=== PATIENT | female | born 1985 | race African-American/Black ===

== ENCOUNTER 2017-06-07 10:30 | Emergency (ER) | payer OTHER ==
[2017-06-07 10:37] VITALS: BMI 32.3
--- NOTE | 2017-06-07 10:49 | PDOC ---
History of Present Illness - General History Source: Patient Exam Limitations: No Limitations - History of Present Illness Initial Comments: 06/07/17 12:54 The patient is a 32 year old female with a significant PMH of thrombocytopenia ( hx ITP in the past, baseline platelets ~80), gastric sleeve, and migraines who presents to the emergency department with generalized fatigue and generalized weakness with lightheadedness beginning approximately 1 week ago. The patient reports feeling generally tired despite receiving enough sleep and notes that she sometimes feels dizzy when getting up from sitting, She also endorses some nausea over the past week. The patient reports a 2 year history of thrombocytopenia and notes her thrombocyte levels usually fluctuate between 80, 000-100,000/L. The patient notes she is sexually active and there may be a chance of . The patient denies chest pain and shortness of breath. Denies fever, chills, abdominal pain, rectal bleeding/melena, diarrhea and constipation. Denies dysuria, frequency, urgency and hematuria. Denies any rashes/bruising, easy bleeding. LMP: Was set to begin 06/01, no onset yet. Allergies: NKA Past surgical history: Sleeve gastrectomy. Social history: Occasional alcohol use. No reported cigarette or drug use. PCP: Dr. Lauren Cameron <Acosta Yee - Last Filed: 06/07/17 12:53> <King Mcdowell - Last Filed: 06/07/17 14:54> - General Chief Complaint: Weakness Stated Complaint: WEAKNESS Time Seen by Provider: 06/07/17 10:44 Past History <Acosta Yee - Last Filed: 06/07/17 12:53> - Past Medical History Anemia: No (thrombocytopenia) COPD: No DVT: No Liver Disease: Yes (FATTY) - Surgical History Abdominal Surgery: Yes (gastric sleeve) - Suicide/Smoking/Psychosocial Hx Smoking History: Never smoked Have you smoked in the past 12 months: No Information on smoking cessation initiated: No Hx Alcohol Use: No Drug/Substance Use Hx: No Substance Use Type: None <King Mcdowell - Last Filed: 06/07/17 14:54> - Past Medical History Allergies/Adverse Reactions: Allergies Allergy/AdvReac Type Severity Reaction Status Date / Time No Known Allergies Allergy Verified 06/07/17 10:33 Home Medications: Ambulatory Orders Meclizine HCl [Antivert -] 25 mg PO QID #30 tablet 01/27/15 Review of Systems - Review of Systems Able to Perform ROS?: Yes Comments:: 06/07/17 12:54 All other systems reviewed and are negative except noted in HPI <Acosta Yee - Last Filed: 06/07/17 12:53> *Physical Exam - Vital Signs Last Vital Signs Temp Pulse Resp BP Pulse Ox 97.7 F 79 18 117/60 100 06/07/17 10:34 06/07/17 10:34 06/07/17 10:34 06/07/17 10:34 06/07/17 10:34 - Physical Exam Comments: 06/07/17 12:54 GENERAL: The patient is awake, alert, and fully oriented, Nontoxic - in no acute distress. HEAD: Normocephalic, atraumatic. EYES: extraocular movements intact, sclera anicteric, conjunctiva clear. ENT: Normal voice, Moist mucous membranes. NECK: Normal range of motion, supple LUNGS: Breath sounds equal, clear to auscultation bilaterally. No wheezes, no rhonchi, no rales. HEART: Regular rate and rhythm, without murmur, rub or gallop. ABDOMEN: Soft, nontender, normoactive bowel sounds. No guarding, no rebound.No CVA tenderness EXTREMITIES: Normal range of motion, no edema. No clubbing or cyanosis. No cords , erythema, or tenderness. NEUROLOGICAL: No facial asymmetry, Normal speech, PSYCH: Normal mood, normal affect. SKIN: Warm, Dry, normal turgor. <Acosta Yee - Last Filed: 06/07/17 12:53> - Vital Signs Last Vital Signs Temp Pulse Resp BP Pulse Ox 97.7 F 79 18 117/60 100 06/07/17 10:34 06/07/17 10:34 06/07/17 10:34 06/07/17 10:34 06/07/17 10:34 <King Mcdowell - Last Filed: 06/07/17 14:54> ED Treatment Course - LABORATORY CBC & Chemistry Diagram: 06/07/17 12:11 06/07/17 12:11 <Acosta Yee - Last Filed: 06/07/17 12:53> - LABORATORY CBC & Chemistry Diagram: 06/07/17 12:11 06/07/17 12:11 <King Mcdowell - Last Filed: 06/07/17 14:54> Medical Decision Making - Medical Decision Making 06/07/17 13:28 ddx in cludes anemia, metabolic dernagement pregancy pts labs reviewed noted for normal platelets, no anemia Uhcg will obtain beta hcg and pelvic US 06/07/17 14:49 pts beta noted aroun d8k pts US noted for IUP <6 weeks with yolk sac w/o pole wissible subchorionic heomrrhage. will dc with carbon paper coating supervisor fu return precautions were discussed I discussed the physical exam findings, ancillary test results and final diagnoses with the patient. I answered all of the patient's questions. The patient was satisfied with the care received and felt comfortable with the discharge plan and treatment plan. The patient will call their primary care physician within 24 hours to arrange follow-up and will return to the Emergency Department with any new, persistent or worsening symptoms. <King Mcdowell - Last Filed: 06/07/17 14:54> *DC/Admit/Observation/Transfer - Attestations Scribe Attestion: 06/07/17 12:18 Documentation prepared by Acosta Yee, acting as medical record clerk for King Mcdowell MD. <Acosta Yee - Last Filed: 06/07/17 12:53> - Discharge Dispostion Admit: No <King Mcdowell - Last Filed: 06/07/17 14:54> Diagnosis at time of Disposition: Qualifiers: Weeks of gestation: less than 8 weeks Qualified Code(s): Z3A.01 - Less than 8 weeks gestation of - Discharge Dispostion Disposition: HOME Condition at time of disposition: Stable - Referrals Referrals: Violeta Cameron MD [Primary Care Provider] - Hira Sherman MD [Staff Physician] - - Patient Instructions Printed Discharge Instructions: DI for -- Discomforts and Remedies Additional Instructions: Return to the emergency department immediately with ANY new, persistent or worsening symptoms. Start taking vitamins You MUST call and follow up with your obgyn within 1 week for further evaluation of your symptoms. Results were discussed with you. Please make sure your doctor reviews the results of your emergency evaluation. Print Language: SOUTH AFRICAN
[2017-06-07 12:19] LABS: BASO % 0.4 % (0-2.0); EOS % 1.1 % (0-4.5); HEMATOCRIT 40.2 % (32.4-45.2); HEMOGLOBIN 13.3 GM/dL (10.7-15.3); LYMPH % 26.1 % (8-40); MCH 27.9 pg (25.7-33.7); MEAN CELL VOLUME 84.7 fl (80-96); MEAN PLT VOLUME 8.8 fl (7.5-11.1); MONO % 4.5 % (3.8-10.2); NEUT % 67.9 % (42.8-82.8); PLATELET COUNT 161 K/MM3 (134-434); RBC 4.75 M/mm3 (3.60-5.2); RDW 13.5 % (11.6-15.6); WHITE BLOOD COUNT 7.1 K/mm3 (4.0-10.0)
[2017-06-07 12:20] LABS: HCG,QUALITATIVE URINE POSITIVE
[2017-06-07 12:22] LABS: URINE APPEARANCE CLEAR; URINE BILIRUBIN NEGATIVE (NEGATIVE); URINE BLOOD NEGATIVE (NEGATIVE); URINE COLOR YELLOW; URINE GLUCOSE (UA) NEGATIVE (NEGATIVE); URINE KETONE NEGATIVE (NEGATIVE); URINE LEUK ESTERASE NEGATIVE (NEGATIVE); URINE NITRITE NEGATIVE (NEGATIVE); URINE PROTEIN NEGATIVE (NEGATIVE)
[2017-06-07 12:46] LABS: ALBUMIN 4.4 g/dl (3.4-5.0); ANION GAP 7 (8-16); BILIRUBIN,TOTAL 0.4 mg/dL (0.2-1.0); BLOOD UREA NITROGEN 13 mg/dL (7-18); CALCIUM 8.8 mg/dL (8.5-10.1); CHLORIDE 108 mmol/L (98-107); CO2 25 mmol/L (21-32); GLUCOSE,RANDOM 70 mg/dL (74-106); SGOT/AST 7 U/L (15-37); SGPT/ALT 14 U/L (12-78); SODIUM 140 mmol/L (136-145); TOT PROT 8.1 g/dl (6.4-8.2)
[2017-06-07 12:47] LABS: ALK PHOS 75 U/L (45-117)
[2017-06-07 15:30] VITALS: BP 120/77; PULSE 67; TEMP 97.6
== END 2017-06-07 15:30 | disposition home or self-care (01) ==
LOC: JER 10:30
DX: O26.891 Other specified pregnancy related conditions, first trimester (principal); Z3A.01 Less than 8 weeks gestation of pregnancy; R53.1 Weakness; R53.83 Other fatigue; R42 Dizziness and giddiness; R11.0 Nausea; D69.6 Thrombocytopenia, unspecified; K76.0 Fatty (change of) liver, not elsewhere classified; Z98.84 Bariatric surgery status
CPT/HCPCS: 36415; 76801-TC; 80053; 81003; 84702; 84703; 85025; 99283-25

== ENCOUNTER 2018-04-17 04:06 | Emergency (ER) | payer OTHER ==
--- NOTE | 2018-04-17 04:27 | PDOC ---
History of Present Illness - General Chief Complaint: Pain, Acute Stated Complaint: ABD PAIN Time Seen by Provider: 04/17/18 04:26 History Source: Patient Exam Limitations: No Limitations - History of Present Illness Initial Comments: 04/17/18 04:29 RLQ pain that started slowly. Timing/Duration: 24 hours Severity: mild Past History - Past Medical History Allergies/Adverse Reactions: Allergies Allergy/AdvReac Type Severity Reaction Status Date / Time No Known Allergies Allergy Verified 04/17/18 20:27 Home Medications: Ambulatory Orders Naproxen [Naprosyn -] 500 mg PO BID PRN 7 Days #14 tablet 04/17/18 Anemia: No (thrombocytopenia) COPD: No DVT: No Liver Disease: Yes (FATTY) - Surgical History Abdominal Surgery: Yes (gastric sleeve) - Suicide/Smoking/Psychosocial Hx Smoking History: Never smoked Have you smoked in the past 12 months: No Information on smoking cessation initiated: No Hx Alcohol Use: No Drug/Substance Use Hx: No Substance Use Type: None Review of Systems - Review of Systems Constitutional: No: Symptoms Reported, See HPI, Chills, Diaphoresis, Fever, Loss of Appetite, Malaise, Night Sweats, Weakness, Weight Stable, Unintentional Wgt. Loss, Unexplained wgt Loss, Other HEENTM: No: Symptoms Reported, See HPI, Eye Pain, Blurred Vision, Tearing, Recent change in vision, Double Vision, Cataracts, Ear Pain, Ocular Prothesis, Ear Discharge, Nose Pain, Nose Congestion, Tinnitus, Nose Bleeding, Hearing Loss , Throat Pain, Throat Swelling, Mouth Pain, Dental Problems, Difficulty Swallowing, Mouth Swelling, Other Respiratory: No: Symptoms reported, See HPI, Cough, Orthopnea, Shortness of Breath, SOB with Exertion, SOB at Rest, Stridor, Wheezing, Productive cough, Hemoptysis, Other Cardiac (ROS): No: Symptoms Reported, See HPI, Chest Pain, Edema, Irregular Heart Rate, Lightheadedness, Palpitations, Syncope, Chest Tightness, Other ABD/GI: Yes: Abdominal cramping. No: Symptoms Reported, See HPI, Abdominal Distended, Abd. Pain w/ defecation, Blood Streaked Bowels, Constipated, Diarrhea , Difficulty Swallowing, Nausea, Poor Appetite, Poor Fluid Intake, Rectal Bleeding, Vomiting, Indigestion, Tarry Stools, Other : No: Symptoms Reported, See HPI, Burning, Dysuria, Discharge, Frequency, Flank Pain, Hematuria, Incontinence, Pain, Urgency, Testicular Mass, Testicular Swelling, Lesions, Testicular Pain, Other Musculoskeletal: No: Symptoms Reported, See HPI, Back Pain, Gout, Joint Pain, Joint Swelling, Muscle Pain, Muscle Weakness, Neck Pain, Joint Stiffness, Other Integumentary: No: Symptoms Reported, See HPI, Bruising, Change in Color, Change in Hair/Nails, Dryness, Erythema, Flushing, Lesions, Lumps, Pallor, Pruritus, Rash, Sweating, Other Neurological: No: Symptoms reported, See HPI, Headache, Numbness, Paresthesia, Pre-Existing Deficit, Seizure, Tingling, Tremors, Weakness, Unsteady Gait, Ataxia, Dizziness, Other *Physical Exam - Vital Signs Last Vital Signs Temp Pulse Resp BP Pulse Ox 98.8 F 68 18 142/73 99 04/17/18 04:12 04/17/18 04:12 04/17/18 04:12 04/17/18 04:12 04/17/18 04:12 - Physical Exam General Appearance: Yes: Nourished, Appropriately Dressed. No: Apparent Distress HEENT: positive: EOMI, [place], Normal ENT Inspection, Normal Voice, Symmetrical, TMs Normal Neck: positive: Normal Thyroid, Supple Respiratory/Chest: positive: Lungs Clear, Normal Breath Sounds. negative: Chest Tender, Respiratory Distress Cardiovascular: positive: Regular Rhythm, Regular Rate, S1, S2 Gastrointestinal/Abdominal: positive: Normal Bowel Sounds, Soft, Protuberent, Tenderness (lower abd tenderness, but no rebound and no guarding. We will check pelvic sono for ovarian cysts) Musculoskeletal: positive: Normal Inspection. negative: CVA Tenderness Extremity: positive: Normal Capillary Refill, Normal Inspection, Normal Range of Motion, Pelvis Stable Integumentary: positive: Normal Color, Dry, Warm Neurologic: positive: press hand supervisor II-XII NML intact, Fully Oriented, Alert, Normal Mood/ Affect Moderate Sedation - Procedure Monitoring Vital Signs: Procedure Monitoring Vital Signs Temperature 98.8 F 04/17/18 04:12 Pulse Rate 68 04/17/18 04:12 Respiratory Rate 18 04/17/18 04:12 Blood Pressure 142/73 04/17/18 04:12 O2 Sat by Pulse Oximetry (%) 99 04/17/18 04:12 ED Treatment Course - LABORATORY CBC & Chemistry Diagram: 04/17/18 04:53 04/17/18 04:53 Medical Decision Making - Medical Decision Making 04/17/18 04:29 Pt will have UA and HCG and she will have some basic labs. 04/18/18 05:50 Pt will be signed out to the day team. They will follow sono of the pelvis to r /o ovarian cysts. *DC/Admit/Observation/Transfer Diagnosis at time of Disposition: Right lower quadrant pain, Other ovarian cyst, right side - Discharge Dispostion Disposition: HOME Condition at time of disposition: Good - Prescriptions Prescriptions: Naproxen [Naprosyn -] 500 mg PO BID PRN 7 Days #14 tablet PRN Reason: Pain - Referrals Referrals: Kofi Nava MD [Staff Physician] - Violeta Cameron MD [Primary Care Provider] - - Patient Instructions Printed Discharge Instructions: DI for Ovarian Cyst Additional Instructions: You were seen today for lower right sided abdominal exam. The ultrasound and CT of your abdomen and pelvis showed three ovarian cysts with a small amount of fluid in your pelvis. This is likely the cause of your pain. Dr. Nava was contacted and informed of your pain. He will see you in his office on Thursday morning. I have sent a prescription for Naproxen to your pharmacy. Take as directed on the package insert. Do not exceed the recommended dosage. Do not take with other NSAID medications such as Ibuprofen, Advil, or Motrin. Go to the nearest emergency department if your condition worsens or you feel like you need additional emergency evaluation. Print Language: LITHUANIAN - Post Discharge Activity
[2018-04-17 04:35] VITALS: BMI 32.3
[2018-04-17] MEDS ORDERED: ACETAMINOPHEN 1000 MG/100 ML VIAL (NON FORMULARY) IVPB ONE ×2 (05:05→11:05)
[2018-04-17 05:11] LABS: BASO % 0.5 % (0-2.0); EOS % 1.2 % (0-4.5); HEMATOCRIT 38.1 % (32.4-45.2); HEMOGLOBIN 12.3 GM/dL (10.7-15.3); LYMPH % 19.4 % (8-40); MCHC 32.2 g/dl (32.0-36.0); MEAN CELL VOLUME 83.9 fl (80-96); MEAN PLT VOLUME 8.5 fl (7.5-11.1); MONO % 6.2 % (3.8-10.2); NEUT % 72.7 % (42.8-82.8); PLATELET COUNT 136 K/MM3 (134-434); RBC 4.54 M/mm3 (3.60-5.2); RDW 14.3 % (11.6-15.6); WHITE BLOOD COUNT 6.3 K/mm3 (4.0-10.0)
[2018-04-17] MEDS ORDERED: ACETAMINOPHEN INJECTION 100 ML IVPB ONE ×2 (05:19→11:07)
[2018-04-17 05:26] LABS: ALBUMIN 3.5 g/dl (3.4-5.0); ALK PHOS 81 U/L (45-117); ANION GAP 6 MMOL/L (8-16); BILIRUBIN,TOTAL 0.3 mg/dL (0.2-1); BLOOD UREA NITROGEN 10 mg/dL (7-18); CALCIUM 8.4 mg/dL (8.5-10.1); CHLORIDE 106 mmol/L (98-107); CO2 27 mmol/L (21-32); CREATININE 0.8 mg/dL (0.55-1.3); GLUCOSE,RANDOM 98 mg/dL (74-106); POTASSIUM 3.9 mmol/L (3.5-5.1); SGOT/AST 10 U/L (15-37); SGPT/ALT 18 U/L (13-61); SODIUM 140 mmol/L (136-145); TOT PROT 6.9 g/dl (6.4-8.2)
[2018-04-17 05:43] LABS: URINE APPEARANCE CLEAR; URINE BILIRUBIN NEGATIVE (<2.0 mg/dL); URINE COLOR LTYELLOW; URINE GLUCOSE (UA) NEGATIVE (NEGATIVE); URINE KETONE NEGATIVE (NEGATIVE); URINE LEUK ESTERASE NEGATIVE (NEGATIVE); URINE NITRITE NEGATIVE (NEGATIVE); URINE PROTEIN NEGATIVE (NEGATIVE); URINE UROBILINOGEN NEGATIVE mg/dL (0.2-1.0)
[2018-04-17 06:35] VITALS: TEMP 98.5
[2018-04-17] MEDS ORDERED: SODIUM CHLORIDE 0.9% 500 ML INFUS.BAG IV ONE (06:38)
--- NOTE | 2018-04-17 07:31 | PDOC ---
*Physical Exam - Vital Signs Last Vital Signs Temp Pulse Resp BP Pulse Ox 98.5 F 61 18 129/87 99 04/17/18 06:34 04/17/18 06:34 04/17/18 06:34 04/17/18 06:34 04/17/18 06:34 - Physical Exam General Appearance: No: Apparent Distress HEENT: positive: Normal Voice Gastrointestinal/Abdominal: positive: Tender (RLQ without rebound or guarding), Flat, Soft. negative: Organomegaly Neurologic: positive: Fully Oriented, Alert, Normal Mood/Affect ED Treatment Course - LABORATORY CBC & Chemistry Diagram: 04/17/18 04:53 04/17/18 04:53 - ADDITIONAL ORDERS Additional order review: Laboratory Results 04/17/18 04/17/18 04:53 04:25 Sodium 140 Potassium 3.9 Chloride 106 Carbon Dioxide 27 Anion Gap 6 L BUN 10 Creatinine 0.8 Creat Clearance w eGFR > 60 Random Glucose 98 Calcium 8.4 L Total Bilirubin 0.3 AST 10 L ALT 18 Alkaline Phosphatase 81 Total Protein 6.9 Albumin 3.5 Urine Color Ltyellow Urine Appearance Clear Urine pH 7.0 D Ur Specific [place] 1.018 Urine Protein Negative Urine Glucose (UA) Negative Urine Ketones Negative Urine Blood Negative Urine Nitrite Negative Urine Bilirubin Negative Urine Urobilinogen Negative Ur Leukocyte Esterase Negative 04/17/18 04:53 RBC 4.54 MCV 83.9 MCHC 32.2 RDW 14.3 MPV 8.5 Neutrophils % 72.7 Lymphocytes % 19.4 D Monocytes % 6.2 Eosinophils % 1.2 Basophils % 0.5 - Medications Given in the ED: ED Medications Discontinued Medications Generic Name Dose Route Start Last Admin Trade Name Mckenna PRN Reason Stop Dose Admin Acetaminophen 1,000 mg 04/17/18 05:05 04/17/18 05:27 Ofirmev Injection - IVPB 04/17/18 05:06 1,000 mg ONCE ONE Administration Sodium Chloride 1,000 ml 04/17/18 06:38 04/17/18 06:40 Normal Saline - IV 04/17/18 06:39 1,000 ml ONCE ONE Administration Medical Decision Making - Medical Decision Making 04/17/18 07:28 Received sign out from ED Attending. In short, pt is a 33 y/o female complaining of intermittent RLQ pain x 1 day. 3 months via c- section. UA unremarkable for pyuria, nitrites, leukocyte esterase. Low suspicion for cystitis or pyelonephritis. CBC and CMP unremarkable for derangement. Awaiting U/S. U/S revealed right ovarian cyst without evidence of torsion. 04/17/18 11:15 Pt reassessed. Reports pain has worsened and become constant after returning from CT scan. Will page OBGYN with concern for possible torsion given multiple cysts on R ovary and change in pain. 04/17/18 11:[address] Nava. Verbally appraised of the pts HPI, ED course, and current plan of management. Agrees story is concerning for possible torsion. Does not have privileges at this facility. Requested youth liaison officer [employer] consult. If pt is discharged, will evaluate pt in office on Thursday. Will call pt directly to schedule appointment. 04/17/18 11:56 Telephone page sent for Dr. Sherman OBGYN youth liaison officer. Left message on voicemail. Waiting call back. ED Attending discussed case with Dr. Sherman. Case discussed with ED attending, Dr. De La Garza. Pt reassessed. Found sleeping. Arousable to voice. Abdominal exam revealed LRQ tenderness without rebound or guarding. States it feels somewhat better, but feels comfortable going home and following up with private OBGYN, Dr. Nava. Will prescribe Naproxen for pain relief. Provided return precautions. *DC/Admit/Observation/Transfer Diagnosis at time of Disposition: Right lower quadrant pain, Other ovarian cyst, right side - Discharge Dispostion Disposition: HOME Condition at time of disposition: Good Decision to Admit order: No - Prescriptions Prescriptions: Naproxen [Naprosyn -] 500 mg PO BID PRN 7 Days #14 tablet PRN Reason: Pain - Referrals Referrals: Violeta Caemron MD [Primary Care Provider] - Kofi Nava MD [Staff Physician] - - Patient Instructions Printed Discharge Instructions: DI for Ovarian Cyst Additional Instructions: You were seen today for lower right sided abdominal exam. The ultrasound and CT of your abdomen and pelvis showed three ovarian cysts with a small amount of fluid in your pelvis. This is likely the cause of your pain. Dr. Nava was contacted and informed of your pain. He will see you in his office on Thursday. I have sent a prescription for Naproxen to your pharmacy. Take as directed on the package insert. Do not exceed the recommended dosage. Do not take with other NSAID medications such as Ibuprofen, Advil, or Motrin. Go to the nearest emergency department if your condition worsens or you feel like you need additional emergency evaluation. Print Language: MALTESE - Post Discharge Activity
[2018-04-17] MEDS ORDERED: KETOROLAC TROMETHAMINE 30 MG/1 ML VIAL IVPUSH ONE (11:18)
[2018-04-17] MEDS ORDERED: KETOROLAC TROMETHAMINE 30 MG/1 ML VIAL ONE (11:19)
[2018-04-17 14:00] VITALS: BP 119/57; PULSE 80
--- NOTE | 2018-04-17 14:51 | PDOC ---
*Physical Exam - Vital Signs Last Vital Signs Temp Pulse Resp BP Pulse Ox 98.5 F 61 18 129/87 99 04/17/18 06:34 04/17/18 06:34 04/17/18 06:34 04/17/18 06:34 04/17/18 06:34 ED Treatment Course - LABORATORY CBC & Chemistry Diagram: 04/17/18 04:53 04/17/18 04:53 - ADDITIONAL ORDERS Additional order review: Laboratory Results 04/17/18 04/17/18 04:53 04:25 Sodium 140 Potassium 3.9 Chloride 106 Carbon Dioxide 27 Anion Gap 6 L BUN 10 Creatinine 0.8 Creat Clearance w eGFR > 60 Random Glucose 98 Calcium 8.4 L Total Bilirubin 0.3 AST 10 L ALT 18 Alkaline Phosphatase 81 Total Protein 6.9 Albumin 3.5 Beta HCG, Quant < 1.0 Urine Color Ltyellow Urine Appearance Clear Urine pH 7.0 D Ur Specific [place] 1.018 Urine Protein Negative Urine Glucose (UA) Negative Urine Ketones Negative Urine Blood Negative Urine Nitrite Negative Urine Bilirubin Negative Urine Urobilinogen Negative Ur Leukocyte Esterase Negative 04/17/18 04:53 RBC 4.54 MCV 83.9 MCHC 32.2 RDW 14.3 MPV 8.5 Neutrophils % 72.7 Lymphocytes % 19.4 D Monocytes % 6.2 Eosinophils % 1.2 Basophils % 0.5 - RADIOLOGY Radiology Studies Ordered: Category Date Time Status ABDOMEN & PELVIS CT WITH CONTR [CT] Stat CT Scan 04/17/18 08:52 Completed - Medications Given in the ED: ED Medications Discontinued Medications Generic Name Dose Route Start Last Admin Trade Name Freq PRN Reason Stop Dose Admin Acetaminophen 1,000 mg 04/17/18 05:05 04/17/18 05:27 Ofirmev Injection - IVPB 04/17/18 05:06 1,000 mg ONCE ONE Administration Acetaminophen 1,000 mg 04/17/18 11:05 04/17/18 11:12 Ofirmev Injection - IVPB 04/17/18 11:06 1,000 mg ONCE ONE Administration Ketorolac Tromethamine 30 mg 04/17/18 11:18 04/17/18 11:26 Toradol Injection - IVPUSH 04/17/18 11:19 30 mg ONCE ONE Administration Sodium Chloride 1,000 ml 04/17/18 06:38 04/17/18 06:40 Normal Saline - IV 04/17/18 06:39 1,000 ml ONCE ONE Administration Medical Decision Making - Medical Decision Making 04/17/18 13:39 Sign-out received from outgoing Emergency Physician Dr. Gardner Pt interviewed and examined Ancillary studies reviewed Case discussed in detail with oncoming Emergency Physician including history, physical exam and ancillary studies. 33 year old female with RLQ pain. I had examined the patient and she had persistent moderate RLQ pain. Ultrasound showed no torsion, + right ovarian cyst ~ 2 cm, IUD that's somewhat low. CT scan ordered to r/o appy. No appendicitis, but with three ovarian cysts, largest at 4 cm. Pt was given tylenol and toradol with significant improvement. Case discussed with Dr. Nava and Dr. Sherman. Given that the ovarian cyst < 6 cm, and pt pain improved drastically, will treat as [place] or ovarian cyst pain. Will d/c with NSAIDS. Pt feels comfortable and will follow up with her taper machine. *DC/Admit/Observation/Transfer - Referrals Referrals: Violeta Cameron MD [Primary Care Provider] - - Patient Instructions - Post Discharge Activity
== END 2018-04-17 14:00 | disposition home or self-care (01) ==
LOC: JER 04:06
PROC: 3E033NZ Introduction of Analgesics, Hypnotics, Sedatives into Peripheral Vein, Percutaneous Approach (ICD-10-PCS; principal; 2018-04-17)
PROC: 3E033NZ Introduction of Analgesics, Hypnotics, Sedatives into Peripheral Vein, Percutaneous Approach (ICD-10-PCS; 2018-04-17)
PROC: 3E0333Z Introduction of Anti-inflammatory into Peripheral Vein, Percutaneous Approach (ICD-10-PCS; 2018-04-17)
DX: N83.201 Unspecified ovarian cyst, right side (principal)
CPT/HCPCS: 36415; 74177-TC; 76856-TC; 80053; 81003; 84702; 85025; 96374; 96375; 96376; 99284-25; J0131

== ENCOUNTER 2018-04-17 20:21 | Observation (INO) | payer OTHER ==
[2018-04-17] MEDS ORDERED: morphine CARPU-JECT 2 MG/1 ML DISP.SYRIN IVPUSH ONE ×2 (20:56→22:48)
[2018-04-17] MEDS ORDERED: MORPHINE SULFATE 2 MG/ML VIAL ONE ×2 (20:58→22:31)
--- NOTE | 2018-04-17 21:07 | PDOC ---
History of Present Illness - General History Source: Patient Exam Limitations: No Limitations - History of Present Illness Initial Comments: 04/17/18 21:09 The patient is a 33 year old female with no significant PMH presenting with worsening, persistent RLQ pain. Patient was discharged this morning on NSAIDS and SPEECH ASSISTANT follow up for similar symptoms. Patient had an ultrasound yesterday which did not show a torsion, right ovarian cyst, and a low IUD. Patient also had a CT yesterday which did not show appendicitis, but did show free fluid in the right adnexa, and three ovarian cysts the largest one being 4cm. Patient presents today with worsening RLQ pain. The patient denies chest pain, shortness of breath, headache and dizziness. Denies fever, chills, nausea, vomit, diarrhea and constipation. Denies dysuria, frequency, urgency and hematuria. Allergies: NKA Past surgical history: None reported. Social history: No reported alcohol, drug, or cigarette use. <Cammy Alvarez - Last Filed: 04/17/18 21:35> <Meghan Gardner - Last Filed: 04/18/18 01:12> - General Chief Complaint: Pain Stated Complaint: ABDOMINAL PAIN Time Seen by Provider: 04/17/18 20:56 Past History <Cammy Alvarez - Last Filed: 04/17/18 21:35> - Past Medical History Anemia: No (thrombocytopenia) COPD: No DVT: No Liver Disease: Yes (FATTY) - Surgical History Abdominal Surgery: Yes (gastric sleeve) - Suicide/Smoking/Psychosocial Hx Smoking History: Never smoked Have you smoked in the past 12 months: No Hx Alcohol Use: No Drug/Substance Use Hx: No Substance Use Type: None <Meghan Gardner - Last Filed: 04/18/18 01:12> - Past Medical History Allergies/Adverse Reactions: Allergies Allergy/AdvReac Type Severity Reaction Status Date / Time No Known Allergies Allergy Verified 04/17/18 20:27 Home Medications: Ambulatory Orders Naproxen [Naprosyn -] 500 mg PO BID PRN 7 Days #14 tablet 04/17/18 Review of Systems - Review of Systems Able to Perform ROS?: Yes Comments:: 04/17/18 21:35 ADULT ROS GENERAL/CONSTITUTIONAL: No fever or chills. No weakness. HEAD, EYES, EARS, NOSE AND THROAT: No change in vision. No ear pain or discharge. No sore throat. CARDIOVASCULAR: No chest pain or shortness of breath. RESPIRATORY: No cough, wheezing, or hemoptysis. GASTROINTESTINAL: No nausea, vomiting, diarrhea or constipation. (+) right lower quadrant pain. GENITOURINARY: No dysuria, frequency, or change in urination. MUSCULOSKELETAL: No joint or muscle swelling or pain. No neck or back pain. SKIN: No rash NEUROLOGIC: No headache, vertigo, loss of consciousness, or change in strength/ sensation. ENDOCRINE: No increased thirst. No abnormal weight change. HEMATOLOGIC/LYMPHATIC: No anemia, easy bleeding, or history of blood clots. ALLERGIC/IMMUNOLOGIC: No hives or skin allergy. <Cammy Alvarez - Last Filed: 04/17/18 21:35> *Physical Exam - Vital Signs Last Vital Signs Temp Pulse Resp BP Pulse Ox 97.7 F 65 18 158/86 100 04/17/18 20:23 04/17/18 20:23 04/17/18 20:23 04/17/18 20:23 04/17/18 20:23 - Physical Exam Comments: 04/17/18 21:36 ADULT EXAM GENERAL: Awake, alert, and fully oriented, (+) writhing in pain on the stretcher. HEAD: No signs of trauma EYES: PERRLA, EOMI, sclera anicteric, conjunctiva clear ENT: Auricles normal inspection, hearing grossly normal, nares patent, oropharynx clear without exudates. Moist mucosa NECK: Normal ROM, supple, no lymphadenopathy, JVD, or masses LUNGS: Breath sounds equal, clear to auscultation bilaterally. No wheezes, and no crackles HEART: Regular rate and rhythm, normal S1 and S2, no murmurs, rubs or gallops ABDOMEN: Soft, nontender, normoactive bowel sounds. No guarding, no rebound. No masses EXTREMITIES: Normal range of motion, no edema. No clubbing or cyanosis. No cords, erythema, or tenderness NEUROLOGICAL: Cranial nerves II through XII grossly intact. Normal speech, normal gait SKIN: Warm, Dry, normal turgor, no rashes or lesions noted. <Cammy Alvarez - Last Filed: 04/17/18 21:35> - Vital Signs Last Vital Signs Temp Pulse Resp BP Pulse Ox 97.7 F 65 18 158/86 100 04/17/18 20:23 04/17/18 20:23 04/17/18 20:23 04/17/18 20:23 04/17/18 20:23 <Meghan Gardner - Last Filed: 04/18/18 01:12> Moderate Sedation - Procedure Monitoring Vital Signs: Procedure Monitoring Vital Signs Temperature 97.7 F 04/17/18 20:23 Pulse Rate 65 04/17/18 20:23 Respiratory Rate 18 04/17/18 20:23 Blood Pressure 158/86 04/17/18 20:23 O2 Sat by Pulse Oximetry (%) 100 04/17/18 20:23 <Cammy Alvarez - Last Filed: 04/17/18 21:35> - Procedure Monitoring Vital Signs: Procedure Monitoring Vital Signs Temperature 97.7 F 04/17/18 20:23 Pulse Rate 65 04/17/18 20:23 Respiratory Rate 18 04/17/18 20:23 Blood Pressure 158/86 04/17/18 20:23 O2 Sat by Pulse Oximetry (%) 100 04/17/18 20:23 <Meghan Gardner - Last Filed: 04/18/18 01:12> ED Treatment Course - Medications Given in the ED: ED Medications Discontinued Medications Generic Name Dose Route Start Last Admin Trade Name Freq PRN Reason Stop Dose Admin Morphine Sulfate 2 mg 04/17/18 20:56 04/17/18 21:00 Morphine Injection - IVPUSH 04/17/18 20:57 2 mg ONCE ONE Administration <Cammy Alvarez - Last Filed: 04/17/18 21:35> - LABORATORY CBC & Chemistry Diagram: 04/17/18 21:50 04/17/18 21:50 - RADIOLOGY Radiology Studies Ordered: Category Date Time Status TRANSVAGINAL ULTRASOUND US [US] Stat Ultrasound 04/17/18 20:56 Ordered - Medications Given in the ED: ED Medications Discontinued Medications Generic Name Dose Route Start Last Admin Trade Name Freq PRN Reason Stop Dose Admin Morphine Sulfate 2 mg 04/17/18 20:56 04/17/18 21:00 Morphine Injection - IVPUSH 04/17/18 20:57 2 mg ONCE ONE Administration <Meghan Gardner - Last Filed: 04/18/18 01:12> Medical Decision Making - Medical Decision Making 04/17/18 22:54 WBC went from 6 to 10 and Neutophils went from 72 to 90% 04/17/18 22:55 Pt has free fluid in her pelvis and we are waiting still for her sono result to return. I took her immediately for sonogram on her arrival, after I placed the IV line and gave her 2mg morphine.. It has been 2.5 hrs. Fortunately pt has no drop in her Hb?HCT. 04/17/18 23:26 Patient Name: CHARAN DUPREE THIS IS A PRELIMINARY REPORT FROM [facility] DATE OF SERVICE: 2018-04-17 21:02:09 IMAGES: 37 EXAM: TRANSVAGINAL ULTRASOUND US HISTORY: 33-year-old female, evaluate for torsion. COMPARISON: None. Findings: Uterus measures 10.0 x 5.4 x 6.[address] Small amount of fluid noted within the endocervical canal. Small amount of fluid also noted posterior cul-de-sac in the pelvis. The right ovary measures 6.6 x 3.6 x 3.5 cm. 2 cystic areas noted in the right ovary measuring 2.7 x 2.5 x 3.0 cm, complex in the second cyst measuring 4.0 x 3.6 x 4.5 cm. Color flow and Doppler venous signal to the right ovary demonstrated. There is nonvisualization left ovary. Impression: 1. Cystic change to the right ovary. No findings to suggest right ovarian torsion. Interval surveillance recommended following 2-3 menstrual cycles. 2. Left ovary not visualized. 3. IUD in place. 04/17/18 23:30 Dr. Sherman is aware of the patient and he will some to see the patient in the AM. <Meghan Gardner - Last Filed: 04/18/18 01:12> *DC/Admit/Observation/Transfer - Attestations Scribe Attestion: 04/17/18 21:36 Documentation prepared by Cammy Alvarez, acting as biomedical electronics technician for Meghan Gardner MD. <Cammy Alvarez - Last Filed: 04/17/18 21:35> - Discharge Dispostion Decision to Admit order: Yes <Meghan Gardner - Last Filed: 04/18/18 01:12> Diagnosis at time of Disposition: Other ovarian cyst, right side, Right lower quadrant pain - Discharge Dispostion Condition at time of disposition: Guarded - Referrals Referrals: ON STAFF,NOT [Primary Care Provider] - - Patient Instructions - Post Discharge Activity
[2018-04-17] MEDS ORDERED: SODIUM CHLORIDE 0.9% 500 ML INFUS.BAG IV ONE (21:08)
[2018-04-17] MEDS ORDERED: ONDANSETRON 4 MG/2 ML VIAL IVPB ONE (21:09)
[2018-04-17] MEDS ORDERED: FAMOTIDINE 20 MG/50 ML IVPB 20 MG/50 ML MG IVPB ONE ×2 (21:09→22:05)
[2018-04-17 21:56] LABS: BASO % 0.3 % (0-2.0); HEMATOCRIT 37.8 % (32.4-45.2); LYMPH % 6.6 % (8-40); MCH 28.2 pg (25.7-33.7); MCHC 34.4 g/dl (32.0-36.0); MEAN CELL VOLUME 82.1 fl (80-96); MEAN PLT VOLUME 8.6 fl (7.5-11.1); MONO % 3.2 % (3.8-10.2); NEUT % 89.9 % (42.8-82.8); PLATELET COUNT 167 K/MM3 (134-434); RDW 14.2 % (11.6-15.6); WHITE BLOOD COUNT 10.3 K/mm3 (4.0-10.0)
[2018-04-17] MEDS ORDERED: ONDANSETRON 4 MG/2 ML VIAL ONE (22:05)
[2018-04-17 22:12] LABS: INR 1.18 (0.83-1.09)
[2018-04-17 22:26] LABS: ALK PHOS 80 U/L (45-117); ANION GAP 10 MMOL/L (8-16); BILIRUBIN,TOTAL 0.5 mg/dL (0.2-1); BLOOD UREA NITROGEN 8 mg/dL (7-18); CALCIUM 8.8 mg/dL (8.5-10.1); CHLORIDE 103 mmol/L (98-107); CO2 24 mmol/L (21-32); CREATININE 0.8 mg/dL (0.55-1.3); GLUCOSE,RANDOM 110 mg/dL (74-106); POTASSIUM 3.5 mmol/L (3.5-5.1); SGOT/AST 11 U/L (15-37); SGPT/ALT 21 U/L (13-61); SODIUM 137 mmol/L (136-145); TOT PROT 7.4 g/dl (6.4-8.2)
[2018-04-17] MEDS ORDERED: ACETAMINOPHEN 325 MG TABLET (FP) PO PRN (23:49)
[2018-04-17] MEDS: LACTATED RINGERS SOLUTION 1,000 ML IV SCH (23:50)
--- NOTE | 2018-04-18 00:01 | HP ---
CHIEF COMPLAINT: PCP: Dr. Cameron HISTORY OF PRESENT ILLNESS: Thank you Dr. Cameron for the opportunity to care for your patient. Briefly, this is a 33 y/o female presenting for the second time in 2 days for lower abdominal pain. Nothing makes it better or worse, hasn't had any recent procedures, no recent abx or medication changes. Seen in ER yday and had US and CT done that r/o any cornelius intraabdominal pathology but did show 3x R- ovarian cysts and recommended 6-8 week FU. Showed malposition of the IUD and a lobulated spleen that should be followed up as OP. She comes back today for worsening of the aforementioned sx. Shock Absorber Installer called in ER and recommended admission to medicine and will see her in the AM (Dr. Sherman). Will place on observation Recent Travel: None PAST MEDICAL HISTORY: No chronic conditions for which she takes Rx medication; ovarian cysts dx yday PAST SURGICAL HISTORY: No recent refining engineer procedures; h/o gastric bypass Social History: Denies abusing alcohol tobacco or drugs Family History: Allergies No Known Allergies Allergy (Verified 04/17/18 20:27) HOME MEDICATIONS: Home Medications Medication Instructions Recorded Naproxen [Naprosyn -] 500 mg PO BID PRN 7 Days #14 tablet 04/17/18 REVIEW OF SYSTEMS 10 sys ROS done and negative aside from HPI PHYSICAL EXAMINATION Vital Signs - 24 hr 04/17/18 20:23 Temperature 97.7 F Pulse Rate 65 Respiratory 18 Rate Blood Pressure 158/86 O2 Sat by Pulse 100 Oximetry (%) GENERAL: Awake, alert, and fully oriented, in no acute distress. HEAD: Normal with no signs of trauma. EYES: Pupils equal, round and reactive to light, extraocular movements intact EARS, NOSE, THROAT: Ears normal, nares patent, oropharynx clear without exudates. Moist mucous membranes. NECK: Normal range of motion, supple without lymphadenopathy, JVD, or masses. LUNGS: Breath sounds equal, clear to auscultation bilaterally HEART: Regular rate and rhythm, normal S1 and S2 without murmur, rub or gallop. ABDOMEN: Soft, tender throughout without rebound, nondistended MUSCULOSKELETAL: Normal range of motion at all joints. No bony deformities or tenderness. No CVA tenderness. PSYCHIATRIC: Cooperative. Good eye contact. Appropriate mood and affect. SKIN: Warm, dry, normal turgor, no rashes or lesions noted, normal capillary refill. Laboratory Results - last 24 hr 04/17/18 04/17/18 04/17/18 21:50 21:50 21:50 WBC 10.3 H RBC 4.60 Hgb 13.0 Hct 37.8 MCV 82.1 MCH 28.2 MCHC 34.4 RDW 14.2 Plt Count 167 D MPV 8.6 Absolute Neuts (auto) 9.2 H Neutrophils % 89.9 H D Lymphocytes % 6.6 L D Monocytes % 3.2 L Eosinophils % 0.0 D Basophils % 0.3 Nucleated RBC % 0 PT with INR 14.00 H INR 1.18 H Sodium 137 Potassium 3.5 Chloride 103 Carbon Dioxide 24 Anion Gap 10 BUN 8 Creatinine 0.8 Creat Clearance w eGFR > 60 Random Glucose 110 H Calcium 8.8 Total Bilirubin 0.5 AST 11 L ALT 21 Alkaline Phosphatase 80 Total Protein 7.4 Albumin 4.0 US shows on prelim report cystic R-ovary and recommended repeat US in 2-3 cycles ; comments IUD in place Prior imaging studies reviewed and described in HPI ASSESSMENT/PLAN: Patient presents with lower abdominal pain and is found to have ovarian cysts with possible malposition of IUD 1) Ovarian Cysts -Defer management to OBGYN -NPO if procedure, pain control, IVF overnight. No need for abx; afebrile and white count is likely reactive -Further imaging and testing per DONOR SERVICES SPECIALIST 2) Possible malposition IUD -Seen on CT but US says in place -Defer management to refining engineer 3) Lobulated Spleen -Likely normal variant but could be minimal splenomeg; followup OP 4) S/P Gastric Bypass -OP nutritional FU, etc. No acute issues FENA -LR@75 -PRN replete -NPO -As tolerated Full Code
[2018-04-18] MEDS ORDERED: KETOROLAC TROMETHAMINE 15 MG/ML VIAL ONE (01:12)
[2018-04-18] MEDS ORDERED: ACETAMINOPHEN 325 MG TABLET (FP) ONE (01:12)
[2018-04-18] MEDS ORDERED: traMADol HCL 50 MG TABLET ONE (01:12)
[2018-04-18] MEDS: KETOROLAC TROMETHAMINE 15 MG/ML VIAL IVPUSH PRN ×3 (01:31→16:48)
[2018-04-18] MEDS: traMADol HCL 50 MG TABLET PO PRN ×2 (01:33→14:03)
[2018-04-18 07:36] VITALS: BMI 35.6
[2018-04-18] MEDS: LACTATED RINGERS SOLUTION 1,000 ML IV SCH (08:26)
--- NOTE | 2018-04-18 08:40 | EKG ---
Test Reason : Blood Pressure : / mmHG Vent. Rate : 056 BPM Atrial Rate : 056 BPM P-R Int : 154 ms QRS Dur : 094 ms QT Int : 474 ms P-R-T Axes : 063 009 017 degrees QTc Int : 457 ms SINUS BRADYCARDIA WITH SINUS ARRHYTHMIA MODERATE VOLTAGE CRITERIA FOR LVH, MAY BE NORMAL VARIANT BORDERLINE ECG NO PREVIOUS ECGS AVAILABLE Confirmed by MARNI MATHEWS MD ([id number]) on 04/18/2018 8:40:07 AM Referred By: Confirmed By:MARNI MATHEWS MD
[2018-04-18 08:58] LABS: HEMATOCRIT 40.7 % (32.4-45.2); HEMOGLOBIN 12.9 GM/dL (10.7-15.3); MCH 26.6 pg (25.7-33.7); MCHC 31.8 g/dl (32.0-36.0); MEAN CELL VOLUME 83.7 fl (80-96); MEAN PLT VOLUME 8.6 fl (7.5-11.1); PLATELET COUNT 160 K/MM3 (134-434); RBC 4.86 M/mm3 (3.60-5.2); RDW 14.1 % (11.6-15.6); WHITE BLOOD COUNT 9.4 K/mm3 (4.0-10.0)
[2018-04-18 09:27] LABS: ALBUMIN 3.6 g/dl (3.4-5.0); ALK PHOS 75 U/L (45-117); ANION GAP 6 MMOL/L (8-16); BILIRUBIN,TOTAL 0.6 mg/dL (0.2-1); BLOOD UREA NITROGEN 7 mg/dL (7-18); CHLORIDE 104 mmol/L (98-107); CO2 27 mmol/L (21-32); CREATININE 0.7 mg/dL (0.55-1.3); GLUCOSE,RANDOM 85 mg/dL (74-106); MAGNESIUM 2.1 mg/dL (1.8-2.4); POTASSIUM 3.6 mmol/L (3.5-5.1); SGOT/AST 7 U/L (15-37); SGPT/ALT 20 U/L (13-61); SODIUM 138 mmol/L (136-145); TOT PROT 7.1 g/dl (6.4-8.2)
--- NOTE | 2018-04-18 10:18 | CON.OBG ---
Consult Consult Specialty:: obgyn Reason for Consultation:: ovarian cysts - History of Present Illness Chief Complaint: pelvic pain History of Present Illness: Visited pt this am, sleeping. Pt awoke and gave story of pelvic pain and has an IUD. She has irregular cycles and was once on ocp for regulation. Explained the results of her exam, no torsion, small cysts up to 4cm and iud. Explained that pt may consider starting ocp for cycle control. Will discuss with her pmd. Pt may be discharged today to follow up with obgyn. - History Source History Provided By: Patient - Past Medical History TOP CARRIER: No: Alzheimer's, CVA, Dementia, Migraine, Multiple Sclerosis, Peripheral Neuropathy, Parkinson's, Seizure, Syncope, TIA, Vertigo, Other Cardio/Vascular: No: AFIB, Aneurysm, Aortic Insufficiency, Aortic Stenosis, CAD , CHF, Deep Vein Thrombosis, HTN, Hyperlipdemia, [place], Mitral Insufficiency, Mitral Stenosis, Murmur, Pulmonary Hypertension, Other Pulmonary: No: Asthma, Bronchitis, Cancer, COPD, O2 Dependent, Pneumonia, Previously Intubated, Pulmonary Embolus, Pulmonary Fibrosis, Sleep Apnea, Other Gastrointestinal: No: Ascites, Cancer, Constipation, Crohn's Disease, Diverticulitis, Diverticulosis, Esophageal Varices, Gastritis, GERD, GI Bleed, Hemorrhoids, Hiatal Hernia, Inflamatory Bowel Disease, Irritable Bowel Disease, Pancreatitis, Peptic Ulcer Disease, Ulcerative Colitis, Other Hepatobiliary: No: Cirrhosis, Cholelithiasis, Cholecystitis, Choledocholithiasis , Hepatitis A, Hepatitis B, Hepatitis C, Other Renal/: No: Renal Failure, Renal Inusuff, BPH, Cancer, Hematuria, Hemodialysis , Neurogenic Bladder, Renal Calculi, UTI, Other Reproductive: No: Ectopic , Endometriosis, Fibroids, PID, Polycystic Ovary Syndrome, Postmenopausal, Other - Alcohol/Substance Use Hx Alcohol Use: No - Smoking History Smoking history: Never smoked Have you smoked in the past 12 months: No Home Medications - Allergies Allergies/Adverse Reactions: Allergies Allergy/AdvReac Type Severity Reaction Status Date / Time No Known Allergies Allergy Verified 04/17/18 20:27 - Home Medications Home Medications: Ambulatory Orders Naproxen [Naprosyn -] 500 mg PO BID PRN 7 Days #14 tablet 04/17/18 Physical Exam-DIRECTOR SELECTION AND ADMINISTRATION Vital Signs: Vital Signs Temperature 97.8 F 04/18/18 06:58 Pulse Rate 49 L 04/18/18 06:58 Respiratory Rate 20 04/18/18 06:58 Blood Pressure 142/65 04/18/18 06:58 O2 Sat by Pulse Oximetry (%) 98 04/18/18 06:58 Labs: CBC, BMP 04/18/18 08:38 04/18/18 08:38 Assessment/Plan sonograms show ovarian cysts no torsion maybe discharged today to folow up with obgyn
[2018-04-18 10:24] LABS: URINE APPEARANCE CLEAR; URINE BILIRUBIN NEGATIVE (<2.0 mg/dL); URINE COLOR STRAW; URINE GLUCOSE (UA) NEGATIVE (NEGATIVE); URINE KETONE NEGATIVE (NEGATIVE); URINE LEUK ESTERASE 1+ (NEGATIVE); URINE NITRITE NEGATIVE (NEGATIVE); URINE PROTEIN NEGATIVE (NEGATIVE); URINE UROBILINOGEN NEGATIVE mg/dL (0.2-1.0)
[2018-04-18 10:37] LABS: EPI CELLS RARE /HPF (FEW); URINE MUCUS RARE
--- NOTE | 2018-04-18 13:35 | DS ---
Physical Examination Vital Signs: Vital Signs Temperature 98.3 F 04/18/18 11:00 Pulse Rate 63 04/18/18 11:00 Respiratory Rate 20 04/18/18 11:00 Blood Pressure 142/77 04/18/18 11:00 O2 Sat by Pulse Oximetry (%) 98 04/18/18 11:00 Findings/Remarks: pt seen/ examined chart reviewed awake/ comfortable emergency worker consult noted Constitutional: Yes: No Distress Eyes: Yes: Conjunctiva Clear Neck: Yes: Supple Cardiovascular: Yes: Regular Rate and Rhythm Respiratory: Yes: CTA Bilaterally Gastrointestinal: Yes: Soft Neurological: Yes: Alert Labs: CBC, BMP 04/18/18 08:38 04/18/18 08:38 Discharge Summary Reason For Visit: RT LOWER QUADRANT ABDOMINAL PAIN;OTHER CYST RT Current Active Problems Other ovarian cyst, right side (Acute) Right lower quadrant pain (Acute) Hospital Course: In summary 33 y/o female presenting for the second time in 2 days for lower abdominal pain. work up -ve except ovarian cyst seen by emergency worker advised to consider ocp pt to follow with her emergency worker in office medically stable for d/c discussed with nursing staff also pt in agreement Condition: Stable - Instructions Referrals: ON STAFF,NOT [Primary Care Provider] - Violeta Cameron MD [Staff Physician] - Disposition: HOME - Home Medications Comprehensive Discharge Medication List: Ambulatory Orders Naproxen [Naprosyn -] 500 mg PO BID PRN 7 Days #14 tablet 04/17/18
[2018-04-18 15:29] VITALS: BP 138/70; PULSE 61; TEMP 98
== END 2018-04-18 17:35 | disposition home or self-care (01) ==
LOC: JER 20:21 → JERBED 04-18 01:12 → J8W 04-18 06:14
PROVIDERS: ADMIT Internal Medicine; ATTEND Internal Medicine
PROC: 3E0333Z Introduction of Anti-inflammatory into Peripheral Vein, Percutaneous Approach (ICD-10-PCS; principal; 2018-04-18)
PROC: 3E033NZ Introduction of Analgesics, Hypnotics, Sedatives into Peripheral Vein, Percutaneous Approach (ICD-10-PCS; 2018-04-18)
PROC: 3E033GC Introduction of Other Therapeutic Substance into Peripheral Vein, Percutaneous Approach (ICD-10-PCS; 2018-04-18)
PROC: 3E0337Z Introduction of Electrolytic and Water Balance Substance into Peripheral Vein, Percutaneous Approach (ICD-10-PCS; 2018-04-18)
DX: N83.201 Unspecified ovarian cyst, right side (principal); R10.31 Right lower quadrant pain; Z98.84 Bariatric surgery status
CPT/HCPCS: 36415; 76830-TC; 80053; 81003; 81015; 83735; 85025; 85027; 85610; 86850; 86900; 86901; 93005; 93010; 96374; 96375; 96376; 99284-25; G0378

== ENCOUNTER 2019-05-24 11:46 | Emergency (ER) | payer OTHER ==
[2019-05-24 12:16] VITALS: BMI 34.7
[2019-05-24] MEDS ORDERED: SODIUM CHLORIDE 1,000 ML IV STA (12:44)
[2019-05-24] MEDS ORDERED: KETOROLAC TROMETHAMINE 30 MG/1 ML VIAL IVPUSH ONE (12:44)
[2019-05-24] MEDS ORDERED: ONDANSETRON 4 MG/2 ML VIAL IVPUSH ONE (12:45)
--- NOTE | 2019-05-24 12:56 | PDOC ---
History of Present Illness - General History Source: Patient Exam Limitations: No Limitations - History of Present Illness Initial Comments: 05/24/19 12:52 Pt is a 34 y/o female who presents to the ED with complaint of lower abdominal pain and bad pain since 2 days ago. She states she currently has her menses and has a history of ovarian cysts that she gets commonly during her menstrual cycle and the pain feels similar. She denies any fevers or chills. She denies any dysuria, frequency or urgency. She has been taking ibuprofen 800mg which has been helping. She last took the ibuprofen last night. She states she has been having some dizziness as well. She denies any past medical history of allergies to medications. <Ngozi Pearl - Last Filed: 05/24/19 15:24> <Sima Montanez - Last Filed: 05/27/19 12:50> - General Chief Complaint: Pain Stated Complaint: PELVIC PAIN Time Seen by Provider: 05/24/19 12:23 Past History - Past Medical History Anemia: No (thrombocytopenia) COPD: No DVT: No Liver Disease: Yes (FATTY) - Surgical History Abdominal Surgery: Yes (gastric sleeve) - Reproductive History Is Patient Now?: No - Psycho Social/Smoking Cessation Hx Smoking History: Never smoked Have you smoked in the past 12 months: No Hx Alcohol Use: No Drug/Substance Use Hx: No Substance Use Type: None <Ngozi Pearl - Last Filed: 05/24/19 15:24> <Sima Montanez - Last Filed: 05/27/19 12:50> - Past Medical History Allergies/Adverse Reactions: Allergies Allergy/AdvReac Type Severity Reaction Status Date / Time No Known Allergies Allergy Verified 05/24/19 12:11 Home Medications: Ambulatory Orders Cephalexin [Keflex] 500 mg PO Q6H 7 Days #28 capsule 05/24/19 Review of Systems - Review of Systems Comments:: 05/24/19 12:53 - Review of Systems Able to Perform ROS?: Yes Constitutional: No: Fever, Chills, Loss of Appetite, Night Sweats, Weakness HEENTM: No: Eye Pain, Vision changes, Ear Pain, Throat Pain, Throat Swelling, Mouth Pain, Difficulty Swallowing Respiratory: No: Cough, Shortness of Breath, Wheezing, Sputum Production Cardiac (ROS): No: Chest Pain, Chest Tightness, Palpitations, Irregular Heart Beat, Edema ABD/GI: No: Nausea, Vomiting, Diarrhea; Positive: Lower Abdominal Pain : No Dysuria, No Hematuria, No Frequency, No Urgency, No Vaginal Discharge/ Pain Musculoskeletal: No: Muscle Pain, Joint Pain, Muscle Weakness, Neck Pain, Positive: Back Pain Integumentary: No: Lesions, Rash Neurological: No: Headache, Numbness, Tingling, Weakness, Speech Difficulties <Dae,Ngozi D - Last Filed: 05/24/19 15:24> *Physical Exam - Vital Signs Last Vital Signs Temp Pulse Resp BP Pulse Ox 98.6 F 99 H 18 104/61 100 05/24/19 12:11 05/24/19 12:11 05/24/19 12:11 05/24/19 12:11 05/24/19 12:11 - Physical Exam 05/24/19 12:54 - Physical Exam General Appearance: Nourished, Appropriately Dressed, No Distress HEENT: EOMI, Normal Voice, No Pharyngeal Erythema, No Muffled/Hoarse voice, No Tonsillar Exudate, No Tonsillar Erythema, No Nasal Congestion, No Rhinorrhea, Hearing Grossly Normal, TMs Normal, No TM Bulging, No TM Dullness, No TM Erythema Neck: Supple, No Lymphadenopathy (R), No Lymphadenopathy (L), No Rigidity, No Decreased range of motion Respiratory/Chest: Lungs Clear, Normal Breath Sounds. No Respiratory Distress, No Accessory Muscle Use Cardiovascular: Regular Rhythm, Regular Rate, S1, S2 Gastrointestinal/Abdominal: Normal Bowel Sounds, Soft. Non-tender, No Guarding , No Rebound, No Rigidity; No reproducible abdominal tenderness to palpation. No CVA tenderness bilaterally. Musculoskeletal: Normal Inspection. No Decreased Range of Motion Extremity: Normal Capillary Refill, Normal Inspection Integumentary: Normal Color, Dry. No Rash Neurologic: crusher operator II-XII NML intact, Fully Oriented, Alert, Normal Mood/Affect, Normal Response <Dae,Ngozi D - Last Filed: 05/24/19 15:24> - Vital Signs Last Vital Signs Temp Pulse Resp BP Pulse Ox 98.1 F 84 18 105/62 98 05/24/19 15:41 05/24/19 15:41 05/24/19 15:41 05/24/19 15:41 05/24/19 15:41 <Sima Montanez - Last Filed: 05/27/19 12:50> ED Treatment Course - LABORATORY CBC & Chemistry Diagram: 05/24/19 13:00 05/24/19 13:00 - ADDITIONAL ORDERS Additional order review: 05/24/19 15:24 Laboratory Tests 05/24/19 05/24/19 13:00 13:00 Urine Color Yellow Urine Appearance Cloudy Urine pH 5.5 Ur Specific [place] 1.016 Urine Protein 1+ H Urine Glucose (UA) Negative Urine Ketones Trace H Urine Blood 3+ H Urine Nitrite Positive H Urine Bilirubin Negative Urine Urobilinogen 0.2 Ur Leukocyte Esterase 2+ H Urine WBC (Auto) 44 Urine RBC (Auto) 25 Urine Casts (Auto) 5 U Epithel Cells (Auto) 1.5 Urine Bacteria (Auto) 5851.7 Urine HCG, Qual Negative - RADIOLOGY Radiology Studies Ordered: Category Date Time Status TRANSVAGINAL ULTRASOUND US [US] Stat Ultrasound 05/24/19 12:45 Ordered <Ngozi Pearl - Last Filed: 05/24/19 15:24> - LABORATORY CBC & Chemistry Diagram: 05/24/19 13:00 05/24/19 13:00 - ADDITIONAL ORDERS Additional order review: 05/24/19 13:00 Urine Culture - Final Urine - Urine Clean Catch Escherichia Coli 05/24/19 13:00 RBC 4.39 MCV 78.9 L MCHC 32.8 RDW 14.9 MPV 8.3 Neutrophils % 69.4 D Lymphocytes % 13.9 D Monocytes % 15.9 H D Eosinophils % 0.6 D Basophils % 0.2 - Medications Given in the ED: ED Medications Discontinued Medications Generic Name Dose Route Start Last Admin Trade Name Freq PRN Reason Stop Dose Admin Cephalexin HCl 500 mg 05/24/19 15:20 05/24/19 15:43 Keflex - PO 05/24/19 15:21 500 mg ONCE ONE Administration Sodium Chloride 1,000 mls @ 1,000 mls/hr 05/24/19 12:44 05/24/19 13:15 Normal Saline - IV 05/24/19 13:43 1,000 mls/hr ASDIR STA Administration Ketorolac Tromethamine 15 mg 05/24/19 12:44 05/24/19 14:04 Toradol Injection - IVPUSH 05/24/19 12:45 15 mg ONCE ONE Administration Ondansetron HCl 4 mg 05/24/19 12:45 05/24/19 13:16 Zofran Injection IVPUSH 05/24/19 12:46 4 mg ONCE ONE Administration <Sima Montanez - Last Filed: 05/27/19 12:50> Medical Decision Making - Medical Decision Making 05/24/19 12:55 Assessment: Patient is a 34-year-old female with lower abdominal pain and back pain for the last 2 days. Plan: -Saline lock and labs ordered -Toradol ordered -Transvaginal ultrasound ordered -Will reassess 05/24/19 15:24 The patient has been made aware that she has a urinary tract infection that may be a sending and that is why she has back pain. We will treat her with Keflex and her first dose will be given to her in the ED. She does have a primary care doctor and she has been encouraged to follow-up with the primary care doctor within 1 to 2 days for repeat evaluation. We will follow-up on the urine culture to ensure that it is sensitive to Keflex. The patient understands and agrees with this treatment and plan and the patient is stable for discharge. <Ngozi Pearl - Last Filed: 05/24/19 15:24> - Medical Decision Making I reviewed the case with the mid-level practitioner and agree with the mid- level practitioner's assessment, diagnosis and disposition. <Sima Montanez - Last Filed: 05/27/19 12:50> Discharge - Discharge Information Problems reviewed: Yes <Ngozi Pearl - Last Filed: 05/24/19 15:24> <Sima Montanez - Last Filed: 05/27/19 12:50> - Discharge Information Clinical Impression/Diagnosis: Urinary tract infection Qualifiers: Urinary tract infection type: acute cystitis Hematuria presence: without hematuria Qualified Code(s): N30.00 - Acute cystitis without hematuria Condition: Stable Disposition: HOME - Additional Discharge Information Prescriptions: Cephalexin [Keflex] 500 mg PO Q6H 7 Days #28 capsule - Follow up/Referral Referrals: Violeta Cameron MD [Primary Care Provider] - 2 Days - Patient Discharge Instructions Patient Printed Discharge Instructions: DI for Urinary Tract Infection (UTI) Additional Instructions: Get plenty of rest and be sure to increase your fluid intake. Take the antibiotics as prescribed and complete the entire course even if you are feeling better. Be sure to see your primary doctor within 2 to 3 days for repeat evaluation. Return to the emergency department immediately for high fevers, shaking chills, profuse vomiting or any other worsening symptoms. - Post Discharge Activity Work/Back to School Note: Back to Work
[2019-05-24] MEDS ORDERED: ONDANSETRON 4 MG/2 ML VIAL ONE (13:06)
[2019-05-24] MEDS ORDERED: KETOROLAC TROMETHAMINE 15 MG/ML VIAL ONE ×2 (13:06→13:41)
[2019-05-24 13:30] LABS: BASO % 0.2 % (0-2.0); EOS % 0.6 % (0-4.5); HEMATOCRIT 34.6 % (32.4-45.2); HEMOGLOBIN 11.4 GM/dL (10.7-15.3); LYMPH % 13.9 % (8-40); MCH 25.9 pg (25.7-33.7); MCHC 32.8 g/dl (32.0-36.0); MEAN CELL VOLUME 78.9 fl (80-96); MEAN PLT VOLUME 8.3 fl (7.5-11.1); MONO % 15.9 % (3.8-10.2); NEUT % 69.4 % (42.8-82.8); PLATELET COUNT 157 K/MM3 (134-434); RBC 4.39 M/mm3 (3.60-5.2); RDW 14.9 % (11.6-15.6); WHITE BLOOD COUNT 7.4 K/mm3 (4.0-10.0)
[2019-05-24 13:34] LABS: EPI CELLS 1.5 /HPF (0-5/HPF); HYALINE CASTS 5 /lpf (0-8); PH,URINE 5.5 (5.0-8.0); URINE APPEARANCE CLOUDY; URINE BACTERIA 5851.7 /hpf (NEGATIVE); URINE BILIRUBIN NEGATIVE (NEGATIVE); URINE COLOR YELLOW; URINE GLUCOSE (UA) NEGATIVE (NEGATIVE); URINE KETONE TRACE (NEGATIVE); URINE LEUK ESTERASE 2+ (NEGATIVE); URINE NITRITE POSITIVE (NEGATIVE); URINE PROTEIN 1+ (NEGATIVE); URINE RBC 25 /hpf (0-4); URINE UROBILINOGEN 0.2 mg/dL (0.2-1.0); URINE WBC 44 /hpf (0-5)
[2019-05-24 14:08] LABS: ALBUMIN 3.4 g/dl (3.4-5.0); BILIRUBIN,TOTAL 0.4 mg/dL (0.2-1); BLOOD UREA NITROGEN 6.5 mg/dL (7-18); CREATININE 0.9 mg/dL (0.55-1.3); POTASSIUM 3.6 mmol/L (3.5-5.1); TOT PROT 7.4 g/dl (6.4-8.2)
[2019-05-24] MEDS ORDERED: CEPHALEXIN MONOHYDRATE 500 MG CAPSULE (UD) PO ONE (15:20)
[2019-05-24] MEDS ORDERED: CEPHALEXIN MONOHYDRATE 500 MG CAPSULE (UD) ONE (15:34)
[2019-05-24 15:42] VITALS: BP 105/62; PULSE 84; TEMP 98.1
== END 2019-05-24 15:44 | disposition home or self-care (01) ==
LOC: JER 11:46
PROC: 3E033GC Introduction of Other Therapeutic Substance into Peripheral Vein, Percutaneous Approach (ICD-10-PCS; principal; 2019-05-24)
PROC: 3E0333Z Introduction of Anti-inflammatory into Peripheral Vein, Percutaneous Approach (ICD-10-PCS; 2019-05-24)
DX: N30.00 Acute cystitis without hematuria (principal); K76.0 Fatty (change of) liver, not elsewhere classified; Z86.2 Personal history of diseases of the blood and blood-forming organs and certain disorders involving the immune mechanism; Z98.84 Bariatric surgery status
CPT/HCPCS: 36415; 76830-TC; 80053; 81003; 83690; 84703; 85025; 87086; 87186; 96374; 96375; 99284-25; J7030

== ENCOUNTER 2022-08-18 20:07 | Emergency (ER) | payer OTHER ==
[2022-08-18 20:14] VITALS: BP 137/85; PULSE 70; RESP 18; TEMP 98.1; BMI 34.9
[2022-08-18] MEDS ORDERED: FAMOTIDINE 20 MG/50 ML IVPB 20 MG/50 ML MG IVPB ONE ×2 (21:40→21:51)
[2022-08-18] MEDS ORDERED: ACETAMINOPHEN 1000 MG/100 ML BAG IVPB ONE (21:40)
[2022-08-18] MEDS ORDERED: ACETAMINOPHEN INJECTION 100 ML IVPB ONE (21:51)
[2022-08-18 22:51] LABS: BASO % 0.4 % (0-2.0); EOS % 2.4 % (0-4.5); HEMATOCRIT 35.6 % (32.4-45.2); HEMOGLOBIN 11.8 GM/dL (10.7-15.3); LYMPH % 23.8 % (8-40); MCH 26.7 pg (25.7-33.7); MCHC 33.1 g/dl (32.0-36.0); MEAN CELL VOLUME 80.5 fl (80-96); MEAN PLT VOLUME 9.1 fl (7.5-11.1); MONO % 8.1 % (3.8-10.2); NEUT % 65.3 % (42.8-82.8); PLATELET COUNT 74 10^3/uL (134-434); RBC 4.42 M/mm3 (3.60-5.2); RDW 14.5 % (11.6-15.6); WHITE BLOOD COUNT 8.8 K/mm3 (4.0-10.0)
[2022-08-18 23:07] LABS: POTASSIUM 4.1 mmol/L (3.5-5.1)
[2022-08-18 23:09] LABS: CALCIUM 8.7 mg/dL (8.5-10.1); MAGNESIUM 2.1 mg/dL (1.8-2.4)
[2022-08-18 23:10] LABS: ALBUMIN 3.6 g/dl (3.4-5.0)
[2022-08-18 23:12] LABS: CREATININE 0.8 mg/dL (0.55-1.3)
[2022-08-18 23:14] LABS: BILIRUBIN,TOTAL 0.4 mg/dL (0.2-1)
[2022-08-19 00:19] LABS: PH,URINE 8.5 (5.0-8.0); URINE APPEARANCE CLEAR; URINE BILIRUBIN NEGATIVE (NEGATIVE); URINE COLOR YELLOW; URINE GLUCOSE (UA) NEGATIVE (NEGATIVE); URINE KETONE TRACE (NEGATIVE); URINE LEUK ESTERASE NEGATIVE (NEGATIVE); URINE NITRITE NEGATIVE (NEGATIVE); URINE PROTEIN TRACE (NEGATIVE)
== END 2022-08-19 00:47 | disposition home or self-care (01) ==
LOC: JER 20:07
PROC: 3E033GC Introduction of Other Therapeutic Substance into Peripheral Vein, Percutaneous Approach (ICD-10-PCS; principal; 2022-08-18)
PROC: 3E033NZ Introduction of Analgesics, Hypnotics, Sedatives into Peripheral Vein, Percutaneous Approach (ICD-10-PCS; 2022-08-18)
DX: R10.31 Right lower quadrant pain (principal); R19.7 Diarrhea, unspecified; L29.2 Pruritus vulvae; Z20.822 Contact with and (suspected) exposure to COVID-19
CPT/HCPCS: 0241U-QW; 36415; 80053; 81003; 83690; 83735; 84703; 85025; 87086; 93005; 93010; 99284-25

== ENCOUNTER 2024-02-07 10:36 | Emergency (ER) | payer OTHER ==
[2024-02-07 10:49] VITALS: BP 127/88; PULSE 75; RESP 18; TEMP 98.3; BMI 32.9
[2024-02-07] MEDS ORDERED: ACETAMINOPHEN INJECTION 100 ML ONE (11:55)
[2024-02-07] MEDS ORDERED: METOCLOPRAMIDE HCL INJECTION 10 MG/2 ML VIAL ONE (11:55)
[2024-02-07] MEDS ORDERED: KETOROLAC TROMETHAMINE 30 MG/1 ML VIAL ONE (11:56)
[2024-02-07] MEDS: ACETAMINOPHEN 1000 MG/100 ML BAG IVPB ONE (12:34)
[2024-02-07] MEDS: SODIUM CHLORIDE 0.9% 500 ML INFUS.BAG IV ONE (12:34)
[2024-02-07] MEDS: KETOROLAC TROMETHAMINE 30 MG/1 ML VIAL IVPUSH ONE (12:34)
[2024-02-07 12:36] LABS: BASO % 0.2 % (0-2.0); EOS % 1.5 % (0-4.5); HEMATOCRIT 37.8 % (32.4-45.2); HEMOGLOBIN 12.2 GM/dL (10.7-15.3); LYMPH % 13.6 % (8-40); MCH 27.1 pg (25.7-33.7); MCHC 32.4 g/dl (32.0-36.0); MEAN CELL VOLUME 83.5 fl (80-96); MEAN PLT VOLUME 8.6 fl (7.5-11.1); MONO % 6.6 % (3.8-10.2); NEUT % 78.1 % (42.8-82.8); PLATELET COUNT 101 10^3/uL (134-434); RBC 4.53 M/mm3 (3.60-5.2); RDW 13.6 % (11.6-15.6)
[2024-02-07 12:38] LABS: PH,URINE 6.5 (5.0-8.0); URINE APPEARANCE CLEAR; URINE BILIRUBIN NEGATIVE (NEGATIVE); URINE COLOR YELLOW; URINE GLUCOSE (UA) NEGATIVE (NEGATIVE); URINE KETONE NEGATIVE (NEGATIVE); URINE LEUK ESTERASE NEGATIVE (NEGATIVE); URINE NITRITE NEGATIVE (NEGATIVE); URINE PROTEIN NEGATIVE (NEGATIVE); URINE UROBILINOGEN 0.2 mg/dL (0.2-1.0)
[2024-02-07 12:41] LABS: HCG,QUALITATIVE URINE Negative
[2024-02-07] MEDS: METOCLOPRAMIDE HCL INJECTION 10 MG/2 ML VIAL IVPB ONE (13:07)
[2024-02-07 13:15] LABS: POTASSIUM 4.2 mmol/L (3.5-5.1)
[2024-02-07 13:18] LABS: ALBUMIN 3.5 g/dl (3.4-5.0); CALCIUM 8.7 mg/dL (8.5-10.1)
[2024-02-07 13:19] LABS: BLOOD UREA NITROGEN 10.5 mg/dL (7-18)
[2024-02-07 13:22] LABS: CREATININE 0.9 mg/dL (0.55-1.3)
[2024-02-07 13:23] LABS: BILIRUBIN,TOTAL 0.4 mg/dL (0.2-1); TOT PROT 6.7 g/dl (6.4-8.2)
== END 2024-02-07 14:46 | disposition home or self-care (01) ==
LOC: JER 10:36
PROC: 3E033NZ Introduction of Analgesics, Hypnotics, Sedatives into Peripheral Vein, Percutaneous Approach (ICD-10-PCS; principal; 2024-02-07)
PROC: 3E0333Z Introduction of Anti-inflammatory into Peripheral Vein, Percutaneous Approach (ICD-10-PCS; 2024-02-07)
PROC: 3E033GC Introduction of Other Therapeutic Substance into Peripheral Vein, Percutaneous Approach (ICD-10-PCS; 2024-02-07)
DX: R51.9 Headache, unspecified (principal); H53.149 Visual discomfort, unspecified; R42 Dizziness and giddiness
CPT/HCPCS: 36415; 70450-TC; 80053; 81003; 84703; 85025; 99284-25; J0131